=== PATIENT | female | born 1955 | race Caucasian/White ===

== ENCOUNTER → 2023-09-09 14:04 | Outpatient (REF) | payer OTHER, SELFPAY | LOC: HWWDC 14:04 | PROVIDERS: ATTENDING PHYSICIAN Family Medicine | DX: Z12.31 Encounter for screening mammogram for malignant neoplasm of breast (principal) | CPT/HCPCS: 77063; 77067 ==

== ENCOUNTER 2023-12-13 12:05 | Emergency (ER) | payer OTHER, SELFPAY ==
[2023-12-13 12:15] VITALS: BP 135/66
[2023-12-13 12:45] LABS: % Basophils 0.4 % (0-2); % Immature Granulocytes 0.2 % (0-0.5); % Lymphocytes 8.5 % (20.5-51.1); % Monocytes 3.3 % (1.7-9.3); % Neutrophils 87.6 % (42.2-75.2); Absolute Basophils 0.1 10^3/uL (0-0.2); Absolute Lymphocytes 1.1 10^3/uL (1.2-3.4); Absolute Monocytes 0.4 10^3/uL (0.1-0.6); Absolute Neutrophils 11.3 10^3/uL (1.4-6.5); Hematocrit 37.3 % (37.0-47.0); Hemoglobin 12.5 g/dL (12.0-16.0); Mean Corp Hgb Conc. 33.5 g/dL (33.0-37.0); Mean Corpuscular Hgb 31.5 pg (27.0-31.0); Mean Platelet Volume 9.8 fL (7.4-10.4); Nucleated Red Blood Cells % 0 %; Platelet Count 276 10^3/uL (130-400); Red Blood Cell Count 3.97 10^6/uL (4.20-5.40); Red Cell Dist. Width 12.3 % (11.5-14.5); White Blood Cell Count 12.9 10^3/uL (4.8-10.8)
[2023-12-13 13:07] LABS: ALT (SGPT) 33 U/L (0-35); AST (SGOT) 35 U/L (14-36); Albumin 4.7 g/dl (3.5-5.0); Alkaline Phosphatase 80 U/L (38-126); Blood Urea Nitrogen 20 mg/dl (7-17); Carbon Dioxide 26 mmol/L (22-30); Chloride 102 mmol/L (98-107); Glucose 108 mg/dl (70-99); Potassium 4.1 mmol/L (3.5-5.1); Sodium 139 mmol/L (135-145); Total Bilirubin 1.2 mg/dl (0.2-1.3); eGFR > 60.00
[2023-12-13 13:12] LABS: Urine Albumin Negative (Neg - Trace); Urine Bilirubin Negative (Negative); Urine Character Clear (Clear); Urine Color Yellow; Urine Glucose Negative (Negative); Urine Ketone 1+ (Negative); Urine Leukocyte 2+ (Negative); Urine Nitrite Negative (Negative); Urine Occult Blood Negative (Negative); Urine Specific Gravity 1.025 (<1.030); Urine Urobilinogen Negative (Neg - 1+)
--- NOTE | 2023-12-13 13:28 | ED.GENMED ---
History of Present Illness
General
Chief Complaint: Back Pain
Source: patient
Time Seen by Provider: 12/13/23 13:13
History of Present Illness
History of Present Illness:
68 year old female c/o left flank/low back pain radiating to lower abdomen. No fever. Pain started 5 days ago and has increased in intensity. No urinary symptoms, no diarrhea/constipation. Pain is somewhat worsened by movement. No rash that she
has noted.
Past History
Past History
ED Past Medical History: None
ED Past Surgical History: None
Social History
Tobacco: Non-smoker
Alcohol: Occasional
Drug: None
Personal:
Living: with family
Employment: Employed
Family History
Family History: Other (Noncontributory)
Phy Exam
Physical Exam
Physical Exam:
Gen: Awake, alert, oriented x3. Appears stated age. Appears uncomfortable from back pain
Vitals: unremarkable
Head: Atraumatic
Eyes: EOMI, no scleral icterus, pupils equal and reactive b/l
Throat: no exudates, mucosa moist, no stridor
Ears: TM's normal b/l
Neck: trachea midline, no mass or adenopathy
Lungs: clear and equal b/l
Heart: regular rate, no murmurs
Abd: soft, non-tender, no pulsitile mass
Back: + left cva tenderness to percussion,
Ext: pulses intact b/l, sensation intact, no edema
Skin: warm, dry, no rash
Neuro: CN intact, muscle strength equal b/l, sensation equal b/l, cerebellar exam intact, reflexes equal and intact b/l
Course
Orders/Labs/Results
Orders:
Orders
12/13/23 12:23
CBC/With Diff [Complete Blood Count/With Diff] Urgent
Comprehensive Metabolic Panel Urgent
Urinalysis Reflex To Culture Urgent
Date Specimen was Collected: 12/13/23
Time Specimen was Collected: 12:18
Urine Microscopic Reflex Cult Urgent
Urine Culture Urgent
LANA Source: U
Specimen Description:
Date Specimen was Collected: 12/13/23
Time Specimen was Collected: 12:18
12/13/23 13:30
0.9% Sodium Chloride 500 ml [Nss] 500 ml IV BOLUS
Ketorolac [Toradol] 15 mg IV NOW STA
12/13/23 14:19
CT Abd/pel W Iv And Oral Contr Urgent
Comment:
Reason For Exam: left sided flank/abd pain
Iohexol [Omnipaque] See Protocol PO NOW STA
12/13/23 19:09
Oxycodone [Roxicodone] 5 mg PO NOW STA
12/13/23 19:11
Metaxalone [Skelaxin] 800 mg PO NOW STA
Oxycodone [Roxicodone] 5 mg PO NOW STA
12/13/23 19:19
Metaxalone [Skelaxin] 800 mg PO NOW STA
Abnormal Lab Results
12/13/23
12:23
WBC 12.9 H 10^3/uL
(4.8-10.8)
RBC 3.97 L 10^6/uL
(4.20-5.40)
MCH 31.5 H pg
(27.0-31.0)
Absolute Neuts (auto) 11.3 H 10^3/uL
(1.4-6.5)
Absolute Lymphs (auto) 1.1 L 10^3/uL
(1.2-3.4)
Neutrophils % 87.6 H %
(42.2-75.2)
Lymphocytes % 8.5 L %
(20.5-51.1)
BUN 20 H mg/dl
(7-17)
Glucose 108 H mg/dl
(70-99)
Urine Ketones 1+ A
(Negative)
Leukocyte Esterase Rfl 2+ A
(Negative)
12/13/23 12:23
12/13/23 12:23
Vital Signs
Initial and Last Documented VS:
Initial Vital Signs
Temp Pulse Resp BP Pulse Ox
98.3 F 70 16 135/66 98
12/13/23 12:15 12/13/23 12:15 12/13/23 12:15 12/13/23 12:15 12/13/23 12:15
Last Documented Vital Signs
Temp Pulse Resp BP Pulse Ox
98.3 F 77 18 126/76 99
12/13/23 12:15 12/13/23 18:50 12/13/23 18:50 12/13/23 18:50 12/13/23 18:50
MDM/Problems Addressed
Differential Diagnosis Includes:
Kidney stone, pyelonephritis, diverticulitis, shingles, muscle strain
MDM/Problems Addressed:
Patient presents with left flank, side pain. Workup here is unremarkable. There is no evidence of an acute process. Will treat with Skelaxin and have the patient continue Tylenol and ibuprofen. Follow-up primary care doctor. Return for
worsening symptoms.
*Radiology
Radiology exam reviewed: radiology read reviewed
*Critical Care Note
Total Time (30-74mins, 75-104mins- exclusive of procedures): Not Applicable
Patient Management
Social determinants of health affecting care: Strong social support
ED Attending Note
-
Portions of this chart may have been created with voice recognition software.� Occasional wrong word or��sound alike� substitutions may have occurred due to the inherent limitations of voice recognition software.
Discharge Plan
Departure
Patient Disposition: Home (Routine Discharge)
Date of Disposition: 12/13/23
Time of Disposition: 19:10
Patient with high blood pressure during this ER visit?: No
Condition: Good
Discharge Problem:
Low back pain
Instructions: Low Back Pain (DC)
Prescriptions:
New
metaxalone 800 mg tablet
800 mg PO TID PRN (Reason: muscle pain) Qty: 20 0RF
No Action
azithromycin 250 MG tablet
250 mg PO DAILY 4 Days Qty: 4 0RF
Referrals:
Jeancarlos Reddy MD [Family Provider] -
Activity Restrictions/Additional Instructions:
Please follow-up with your primary care provider next week. Return if you develop a fever or feel you are getting worse in any way.
Interventions
Interventions:
*Risk Screen - Suicide Last Done: 12/13/23 12:15
*General Assessment Last Done: 12/13/23 12:15
*Neglect/Abuse Screening Last Done: 12/13/23 12:15
ED- Fall Risk Assessment Last Done: 12/13/23 12:46
*Nursing Disposition Last Done: 12/13/23 19:21
Discharge Date and Time
Print Language: GREENLANDIC
[2023-12-13] MEDS: TORADOL 15 MG IV (13:46)
[2023-12-13] MEDS: NSS 500 IV (13:46)
[2023-12-13 13:58] LABS: Urine Red Blood Cell 0-2 /HPF (0-2)
[2023-12-13 13:59] LABS: Urine Mucus Moderate
[2023-12-13 14:17] VITALS: BMI 22.7
[2023-12-13 14:23] VITALS: BP 128/72
[2023-12-13] MEDS: OMNIPAQUE 50 ML PO (14:58)
[2023-12-13 16:45] VITALS: BP 128/74
[2023-12-13 18:50] VITALS: BP 126/76
[2023-12-13] MEDS: ROXICODONE 5 MG PO ×2 (19:14→19:15)
[2023-12-13] MEDS: SKELAXIN 800 MG PO (19:36)
== END 2023-12-13 20:18 | disposition home or self-care (01) ==
LOC: EMR 12:05
PROVIDERS: Emergency Medicine; EMERGENCY PHYSICIAN Emergency Medicine; FAMILY PHYSICIAN Family Medicine
DX: M54.50 Low back pain, unspecified (principal)
CPT/HCPCS: 99285; 96374; 96361; 74177; 80053; 81003; 81015; 85025; 87086; Q9967

== ENCOUNTER 2025-01-05 09:14 | Emergency (ER) | payer OTHER, SELFPAY ==
[2025-01-05 09:29] VITALS: BP 103/79
[2025-01-05 09:49] LABS: Hematocrit 37.8 % (37.0-47.0); Hemoglobin 12.5 g/dL (12.0-16.0); Mean Corp Hgb Conc. 33.1 g/dL (33.0-37.0); Mean Corpuscular Volume 93.1 fL (81.0-99.0); Nucleated Red Blood Cells % 0 %; Platelet Count 249 10^3/uL (130-400); Red Cell Dist. Width 12.4 % (11.5-14.5)
[2025-01-05 10:26] LABS: Troponin I < 0.012 ng/ml
[2025-01-05 10:27] LABS: ALT (SGPT) 32 U/L (0-35); AST (SGOT) 31 U/L (14-36); Albumin 4.4 g/dl (3.5-5.0); Alkaline Phosphatase 69 U/L (38-126); Blood Urea Nitrogen 11 mg/dl (7-17); Calcium 8.8 mg/dl (8.4-10.2); Carbon Dioxide 28 mmol/L (22-30); Chloride 107 mmol/L (98-107); Potassium 4.0 mmol/L (3.5-5.1); Sodium 139 mmol/L (135-145); Total Protein 7.6 g/dl (6.3-8.2); eGFR > 60.00
[2025-01-05 10:32] LABS: Glucose 115 mg/dl (70-99)
[2025-01-05 11:54] VITALS: BP 131/65
--- NOTE | 2025-01-05 11:54 | ED.GENMED ---
History of Present Illness
General
Chief Complaint: Dizziness
Source: patient
Exam Limitations: none
Time Seen by Provider: 01/05/25 11:34
Nursing documentation reviewed up to this point in time: agreed with
History of Present Illness
History of Present Illness:
Patient is a 69-year-old female with no past medical history presented to the ER for evaluation. She reports she woke up at 6:30 AM walk to the bathroom and after she went back to bed to lay down she felt sudden onset of room spinning associated
with nausea. She broke out in a sweat. This lasted for about 30 minutes to 45 minutes. She does feel significantly improved however does feel slight room spinning when she sits up. She has no prior history of vertigo. She denies any trauma.
Denies any chiropractor manipulation. Denies any recent viral illness. She had no associated headache with this. She denies any neck pain. No associated chest pain shortness of breath. No recent fever chills. No visual changes.
Past History
Past History
ED Past Medical History: None
ED Past Surgical History: None
Social History
Tobacco: Non-smoker
Alcohol: Occasional
Drug: None
Personal:
Living: with family
Employment: Employed
Family History
Family History: Other (Noncontributory)
Phy Exam
General Physical Exam
General Presentation: no apparent distress
General age: appears stated age
General Skin: warm and dry
General Habitus: normal
General Mental: alert
General Hydration: appears well hydrated
Eye Exam
Eye Exam: PERRL, EOMI and other (No nystagmus bilaterally)
Eye Exam General: PERRL: bilateral and EOM intact: bilateral
Pupil Exam: Bilateral: round and reactive
Cardiovascular Exam
Cardiovascular Exam: regular rate/rhythm, no murmur and normal peripheral pulses
Pulmonary Exam
Pulmonary Exam: lungs clear and no respiratory distress
Neurological Exam
Neurological Exam: alert, oriented x3, no motor deficits and no sensory deficits
Musculoskeletal Exam
Musculoskeletal Exam: full ROM
Skin Exam
Skin Exam: normal color and warm/dry
Psychiatric Exam
Psychiatric Exam: normal mood/affect
Course
Orders/Labs/Results
Orders:
Orders
01/05/25 09:32
Electrocardiogram (*1) Urgent
Reason for Study: Vertigo / Dizzy
EKG- Treatment ONCE
01/05/25 09:39
Complete Blood Count/With Diff Urgent
Comprehensive Metabolic Panel Urgent
Troponin I Urgent
01/05/25 11:53
CT Head W/o Iv Contrast Urgent
Comment:
Reason For Exam: new onset vertigo
Physical Therapy Consult [Pt Eval And Treat] Urgent
Treatment: new onset vertigo
Activity Level: As Tolerated
01/05/25 12:41
Meclizine [Antivert] 25 mg PO NOW STA
Ondansetron Orally Disint [Zofran Odt (Orally Disintegrating)] 4 mg PO NOW STA
Abnormal Lab Results
01/05/25
09:39
RBC 4.06 L 10^6/uL
(4.20-5.40)
Absolute Lymphs (auto) 1.1 L 10^3/uL
(1.2-3.4)
Lymphocytes % 17.8 L %
(20.5-51.1)
Glucose 115 H mg/dl
(70-99)
01/05/25 09:39
01/05/25 09:39
Vital Signs
Initial and Last Documented VS:
Initial Vital Signs
Temp Pulse Resp BP Pulse Ox
97.7 F 66 22 103/79 100
01/05/25 09:29 01/05/25 09:29 01/05/25 09:29 01/05/25 09:29 01/05/25 09:29
Last Documented Vital Signs
Temp Pulse Resp BP Pulse Ox
97.7 F 58 17 141/72 100
01/05/25 09:29 01/05/25 13:51 01/05/25 11:54 01/05/25 13:51 01/05/25 13:51
Field Professional consulted with Physician
Field Professional consulted with physician?: Yes
Name of Physician Consulted: Sam
MDM/Problems Addressed
Differential Diagnosis Includes:
Not limited to vertigo
MDM/Problems Addressed:
Symptoms are consistent with BPV. Patient no acute distress no trauma no concerning symptoms consistent with dissection, stroke. Patient was improving upon arrival. Physical therapy did evaluate patient and exam was consistent with BPV. For
physical therapy she had slight horizontal nystagmus however very minimum. physical therapy slightly worsened symptoms patient was given meclizine and Zofran and monitored here feeling much better. She was able to ambulate feeling much better no
acute distress. She was able to eat here. Will DC with meclizine and Zofran as needed and outpatient followed by family doctor. Patient given vestibular therapy instructions
*Pulse Oximetry
SaO2: 100
Oxygen Mode of Delivery: Room air
Patient hypoxic: no
*Critical Care Note
Total Time (30-74mins, 75-104mins- exclusive of procedures): Not Applicable
ED Attending Note
-
Portions of this chart may have been created with voice recognition software.� Occasional wrong word or��sound alike� substitutions may have occurred due to the inherent limitations of voice recognition software.
Discharge Plan
Departure
Patient Disposition: Home (Routine Discharge)
Date of Disposition: 01/05/25
Time of Disposition: 14:08
Patient with high blood pressure during this ER visit?: Yes
Condition: Fair
Covid-19: Not Applicable
Discharge Problem:
BPV (benign positional vertigo)
Instructions: Vertigo (a Type of Dizziness) (DC)
Prescriptions:
New
meclizine 25 mg tablet
25 mg PO TID PRN (Reason: dizziness) Qty: 10 0RF
ondansetron 4 mg tablet,disintegrating
4 mg PO Q8H PRN (Reason: nausea and vomiting) Qty: 10 0RF
No Action
azithromycin 250 MG tablet
250 mg PO DAILY 4 Days Qty: 4 0RF
metaxalone 800 mg tablet
800 mg PO TID PRN (Reason: muscle pain) Qty: 20 0RF
oxycodone 5 mg tablet
5 mg PO Q6H PRN (Reason: Pain) Qty: 12 0RF
Referrals:
Jeancarlos Reddy MD [Family Provider, Family Practice]
Activity Restrictions/Additional Instructions:
As discussed you may take meclizine as needed for vertigo and Zofran as needed for nausea. Please follow-up closely with your family doctor. You are also given information for physical therapy/vestibular therapy for vertigo. Return however if any
worsening of symptoms of continued vertigo, room spinning difficulty walking headache blurred vision ,neck pain or any further concerns.
Interventions
Interventions:
*Risk Screen - Suicide Last Done: 01/05/25 09:29
*General Assessment Last Done: 01/05/25 09:29
*Neglect/Abuse Screening Last Done: 01/05/25 09:29
*ED COVID-19 Vaccine History Last Done: 01/05/25 11:55
ED- Neurological Assessment Last Done: 01/05/25 11:55
ED Swallowing Screen Last Done: 01/05/25 12:00
Discharge Date and Time
Print Language: JAPANESE
[2025-01-05] MEDS: ZOFRAN ODT (ORALLY DISINTEGRATING) 4 MG PO (13:03)
[2025-01-05] MEDS: ANTIVERT 25 MG PO (13:03)
[2025-01-05 13:51] VITALS: BP 141/72
== END 2025-01-05 14:59 | disposition home or self-care (01) ==
LOC: EMR 09:14
PROVIDERS: Student in an Organized Health Care Education/Training Program; EMERGENCY PHYSICIAN Emergency Medicine; FAMILY PHYSICIAN Family Medicine
DX: H81.10 Benign paroxysmal vertigo, unspecified ear (principal)
CPT/HCPCS: 99284; 70450; 80053; 84484; 85025; 93005